=== PATIENT | male | born 1995 | race Caucasian/White ===

== ENCOUNTER → 2022-02-12 | Outpatient (CLI) | payer OTHER | LOC: MHCPAIN 10:54 | DX: M54.50 Low back pain, unspecified (principal); M53.3 Sacrococcygeal disorders, not elsewhere classified; M47.817 Spondylosis without myelopathy or radiculopathy, lumbosacral region; M51.36 Other intervertebral disc degeneration, lumbar region | CPT/HCPCS: G0463 ==